=== PATIENT | male | born 1940 | race Caucasian/White ===

== ENCOUNTER 2017-07-27 21:31 | Emergency (ER) | payer MEDICARE, OTHER ==
[~2017-07-27] VITALS: Ht 177.8 cm; Wt 75.7 kg
[2017-07-27 22:16] VITALS: Ht 177.8 cm; Wt 75.7 kg
[2017-07-27 22:31] VITALS: BP 149/86
== END 2017-07-27 23:45 | disposition home or self-care (01) ==
LOC: ED 21:31
DX: S52.501A Unspecified fracture of the lower end of right radius, initial encounter for closed fracture (principal); S22.31XA Fracture of one rib, right side, initial encounter for closed fracture; I10 Essential (primary) hypertension; E78.5 Hyperlipidemia, unspecified; X58.XXXA Exposure to other specified factors, initial encounter; Y93.89 Activity, other specified; Y92.89 Other specified places as the place of occurrence of the external cause; Y99.8 Other external cause status

== ENCOUNTER 2018-03-10 17:30 | Emergency (ER) | payer MEDICARE, OTHER ==
[~2018-03-10] VITALS: Ht 182.9 cm; Wt 67.2 kg
[2018-03-10 17:53] VITALS: Ht 182.9 cm; Wt 67.2 kg
[2018-03-10 19:48] VITALS: BP 115/68
[2018-03-11] MEDS ORDERED: EVAC-U-GEN8.6 M1 PO (18:05)
[2018-03-11] MEDS ORDERED: NORCO1 TA2 PO (18:05)
[2018-03-11] MEDS ORDERED: SIMVASTATIN20 M1 PO (18:05)
[2018-03-11] MEDS ORDERED: MIRTAZAPINE15 M3 PO (18:06)
[2018-03-11] MEDS ORDERED: CALCIUM + D3 E1 EACH PO (18:07)
[2018-03-11] MEDS ORDERED: TAMSULOSIN HYD0.4 M1 PO (18:07)
[2018-03-11] MEDS ORDERED: MORPHINE SULFAT15 MG PO (18:07)
[2018-03-11] MEDS ORDERED: COLACE100 MG PO (18:08)
== END 2018-03-10 19:48 | disposition home or self-care (01) ==
LOC: ED 17:30
DX: K59.00 Constipation, unspecified (principal); E78.00 Pure hypercholesterolemia, unspecified; I10 Essential (primary) hypertension; Z86.73 Personal history of transient ischemic attack (TIA), and cerebral infarction without residual deficits; Z85.118 Personal history of other malignant neoplasm of bronchus and lung
CPT/HCPCS: Q0092

== ENCOUNTER 2018-03-11 16:20 | Inpatient (IN) | payer MEDICARE, OTHER ==
[~2018-03-11] VITALS: Ht 185.4 cm; Wt 69.0 kg
[2018-03-11 16:47] LABS: BASOPHIL % 0.9 % (0-2); PLATELET COUNT 301 x10^3mcL (130-400)
[2018-03-11 16:50] LABS: RED CELL DISTRIBUTION WIDTH 17.7 % (11.5-14.5)
[2018-03-11 16:56] LABS: CALCIUM 9.4 mg/dL (8.5-10.1); CARBON DIOXIDE 29.6 mmol/L (21-32); CHLORIDE SERUM 100 mmol/L (98-107); CREATININE SERUM 1.5 mg/dL (0.7-1.3); GLUCOSE SERUM 120 mg/dL (74-106); POTASSIUM SERUM 4.5 mmol/L (3.5-5.1); SODIUM SERUM 137 mmol/L (136-145)
[2018-03-11 17:01] LABS: ALKALINE PHOSPHATASE 65 U/L (46-116); ALT/SGPT 14 U/L (16-63); AST/SGOT 19 U/L (15-37); BILIRUBIN TOTAL 0.5 mg/dL (0.20-1.00); TOTAL PROTEIN, SERUM 7.8 g/dL (6.4-8.2)
[2018-03-11 17:12] LABS: ALBUMIN 2.8 g/dL (3.4-5.0)
[2018-03-11] MEDS ORDERED: SIMVASTATIN20 M1 PO (18:05)
[2018-03-11] MEDS ORDERED: NORCO1 TA2 PO (18:05)
[2018-03-11] MEDS ORDERED: EVAC-U-GEN8.6 M1 PO (18:05)
[2018-03-11] MEDS ORDERED: MIRTAZAPINE15 M3 PO (18:06)
[2018-03-11] MEDS ORDERED: MORPHINE SULFAT15 MG PO (18:07)
[2018-03-11] MEDS ORDERED: CALCIUM + D3 E1 EACH PO (18:07)
[2018-03-11] MEDS ORDERED: TAMSULOSIN HYD0.4 M1 PO (18:07)
[2018-03-11] MEDS ORDERED: COLACE100 MG PO (18:08)
[2018-03-11 18:19] LABS: T3 TOTAL 0.81 ng/mL
[2018-03-11 19:02] LABS: FREE T4 1.35 ng/dL (0.76-1.46); FREE THYROXINE INDEX 2.6 ug/dL (1.4-4.5); MAGNESIUM 1.7 mg/dL (1.8-2.4); PHOSPHOROUS 3.8 mg/dL (2.5-4.9); T4(THYROXINE) 6.4 ug/dL (4.7-13.3)
[2018-03-11 21:17] VITALS: BP 136/74
[2018-03-11 23:18] VITALS: BP 103/58
[2018-03-12] VITALS (7 sets, daily range): BP systolic 96–124; BP diastolic 54–64
[2018-03-12 05:21] LABS: BASOPHIL % 0.4 % (0-2); PLATELET COUNT 285 x10^3mcL (130-400)
[2018-03-12 05:22] LABS: RED CELL DISTRIBUTION WIDTH 18.3 % (11.5-14.5)
[2018-03-12 05:41] LABS: CALCIUM 8.8 mg/dL (8.5-10.1); CARBON DIOXIDE 32.4 mmol/L (21-32); CHLORIDE SERUM 103 mmol/L (98-107); CREATININE SERUM 1.2 mg/dL (0.7-1.3); GLUCOSE SERUM 94 mg/dL (74-106); MAGNESIUM 1.6 mg/dL (1.8-2.4); PHOSPHOROUS 3.4 mg/dL (2.5-4.9); SODIUM SERUM 139 mmol/L (136-145)
[2018-03-12 22:15] LABS: microscopic required? NO
[2018-03-12 22:22] LABS: urine erythrocyte NEGATIVE (NEGATIVE)
[2018-03-13 05:33] VITALS: BP 114/56
[2018-03-13 06:34] LABS: CALCIUM 8.3 mg/dL (8.5-10.1); CARBON DIOXIDE 27.7 mmol/L (21-32); CHLORIDE SERUM 105 mmol/L (98-107); CREATININE SERUM 1.2 mg/dL (0.7-1.3); GLUCOSE SERUM 89 mg/dL (74-106); POTASSIUM SERUM 4.2 mmol/L (3.5-5.1); SODIUM SERUM 139 mmol/L (136-145)
[2018-03-13 06:42] LABS: BASOPHIL % 0.5 % (0-2); PLATELET COUNT 267 x10^3mcL (130-400)
[2018-03-13 09:29] VITALS: BP 115/58
[2018-03-13] MEDS ORDERED: METOPROLOL SUCC25 M2 PO (11:20)
[2018-03-13 11:27] VITALS: Ht 185.4 cm; Wt 69.0 kg
[2018-03-13 11:54] VITALS: BP 115/58
== END 2018-03-13 13:48 | disposition home or self-care (01) | DRG 308 ==
LOC: ED 16:20 → EDBEDREQ 18:28 → EDBEDREQSVC 18:28 → IC 18:45 → DU 03-12 16:20
PROVIDERS: Emergency Medicine; ADMIT Family Medicine
DX: I47.1 Supraventricular tachycardia (principal); E43 Unspecified severe protein-calorie malnutrition; N17.0 Acute kidney failure with tubular necrosis; C34.90 Malignant neoplasm of unspecified part of unspecified bronchus or lung; I69.351 Hemiplegia and hemiparesis following cerebral infarction affecting right dominant side; E83.42 Hypomagnesemia; N40.0 Benign prostatic hyperplasia without lower urinary tract symptoms; J44.9 Chronic obstructive pulmonary disease, unspecified; E78.5 Hyperlipidemia, unspecified; I34.0 Nonrheumatic mitral (valve) insufficiency; I25.10 Atherosclerotic heart disease of native coronary artery without angina pectoris; I27.20 Pulmonary hypertension, unspecified; D64.9 Anemia, unspecified; I10 Essential (primary) hypertension; Z66 Do not resuscitate; Z51.5 Encounter for palliative care; I69.320 Aphasia following cerebral infarction; Z99.81 Dependence on supplemental oxygen; Z68.21 Body mass index [BMI] 21.0-21.9, adult; Z95.1 Presence of aortocoronary bypass graft; Z87.891 Personal history of nicotine dependence
CPT/HCPCS: 83880; 84439; 87804; 97110-GP; 97530-GP; J0153; J0282; J2270; J3475; J7030; J7620; Q0092